=== PATIENT | male | born 1980 | race Two or more races ===

== ENCOUNTER 2024-08-24 06:58 | Emergency (ER) | payer SELFPAY ==
[~2024-08-24] VITALS: Ht 170.2 cm; Wt 72.3 kg
[2024-08-24 07:28] VITALS: BP 161/68; PULSE 109; RESP 16; O2SAT 99
--- NOTE | 2024-08-24 08:14 | ED.PDOC ---
History of Present Illness HPI Comments 44 year old male presents to the ED with chief complaint of medical clearance. Patient's brother reports that the patient has been sleepless for the past 5 days due to methamphetamine use and has been increasingly paranoid. Patient relays that he has been paranoid lately, however, he believes he just needs to stop doing drugs and refuses any and all hospital work up or treatment. Patient states he felt unsafe in his place of residence in [facility], but he is moving in with his father who lives in [place]. Patient admits to Methamphetamine, Marijuana, and heavy ETOH use. Patient notes he is willing to seek out a rehabilitation center and does not want to be seen in the ED, only co lina because his brother had made him. Patient denies any symptoms at this time. Chief Complaint: Medical Clearance Time Seen by MD: 08:10 Primary Care Provider: none Reviewed Notes: Nurses Notes, Medications, Allergies Allergies: Coded Allergies: NO KNOWN ALLERGIES (Unverified , 08/24/24) Information Source: Patient, Relative (Sibling) Mode of Arrival: Ambulatory Severity: None Prehospital treatment: None Past Medical History PAST MEDICAL HISTORY: Denies Surgical History: Denies all surgeries Family History Family History: Reviewed,noncontributory to illness Social History Smoker: Non-Smoker Alcohol: Heavy Drugs: Marijuana, Methamphetamine Lives In: Home Constitutional: denies: chills, diaphoresis, fatigue, fever, malaise, sweats, weakness, others EENTM: denies: blurred vision, double vision, ear bleeding, ear discharge, ear drainage, ear pain, ear ringing, eye pain, eye redness, hearing loss, mouth pain, mouth swelling, nasal discharge, nose bleeding, nose congestion, nose pain, photophobia, tearing, throat pain, throat swelling, voice changes, others Respiratory: denies: cough, hemoptysis, orthopnea, SOB at rest, shortness of breath, SOB with excertion, stridor, wheezing, others Cardiovascular: denies: chest pain, dizzy spells, diaphoresis, Dyspnea on exertion, edema, irregular heart beat, left arm pain, lightheadedness, palpitations, PND, syncope, others Gastrointestinal: denies: abdomen distended, abdominal pain, blood streaked bowels, constipated, diarrhea, dysphagia, difficulty swallowing, hematemesis, melena, nausea, poor appetite, poor fluid intake, rectal bleeding, rectal pain, vomiting, others Genitourinary: denies: burning, dysuria, flank pain, frequency, hematuria, incontinence, penile discharge, penile sore, pain, testicle pain, testicle swelling, urgency, others Neurological: denies: dizziness, fainting, headache, left sided numbness, left sided weakness, numbness, paresthesia, pre-existing deficit, right sided numbness, right sided weakness, seizure, speech problems, tingling, tremors, weakness, others Musculoskeletal: denies: back pain, gout, joint pain, joint swelling, muscle pain, muscle stiffness, neck pain, others Integumetry: denies: bruises, change in color, change in hair/nails, dryness, laceration, lesions, lumps, rash, wounds, others Allergic/Immunocompromised: denies: Difficulty Healing, Frequent Infections, Hives, Itching, others Hematologic/Lymphatic: denies: anemia, blood clots, easy bleeding, easy bruising, swollen glands, others Endocrine: denies: excessive hunger, excessive sweating, excessive thirst, excessive urination, flushing, intolerance to cold, intolerance to heat, unexplained weight gain, unexplained weight loss, others Psychiatric: denies: anxiety, bipolar disorder, depression, hopeless, panic disorder, schizophrenia, sleepless, suicidal, others All Other Systems: Reviewed and Negative Physical Exam General Appearance: Moderate Distress, Normal HEENT: Normal ENT Inspection, PERRL/EOMI Neck: Full Range of Motion, Non-Tender, Normal, Normal Inspection Respiratory: Chest Non-Tender, Lungs Clear, No Accessory Muscle Use, No Respiratory Distress, Normal Breath Sounds Cardiovascular: No Edema, No JVD, No Murmur, No Gallop, Normal Peripheral Pulses, Regular Rate/Rhythm Breast Exam: Deferred Gastrointestinal: No Organomegaly, Non Tender, No Pulsatile Mass, Normal Bowel Sounds, Soft Genitalia: Deferred Pelvic: Deferred Rectal: Deferred Extremities: No calf tenderness, Normal capillary refill, Normal inspection, Normal range of motion, Non-tender, No pedal edema Musculoskeletal : Apperance: Normal Neurologic: Alert, orthopedic physician II-XII nml as Tested, No Motor Deficits, Normal Affect, Normal Mood, No Sensory Deficits Cerebellar Function: Normal Reflexes: Normal Skin: Dry, Normal Color, Warm Peripheral Pulses: 3+ Radial (R), 3+ Radial (L) Lymphatic: No Adenopathy Was a procedure done? Was a procedure done?: No Differential Dx Considerations may include: Drug use Electrolyte imbalance X-Ray, Labs, Meds, VS Vital Signs Date Time Temp Pulse Resp B/P (MAP) Pulse Ox O2 Delivery O2 Flow Rate FiO2 08/24/24 07:28 98.0 109 16 161/68 (99) 99 Patient alert. History of drug use. Drinks a lot of alcohol. Vitals stable. Denies any symptoms. Saturation pristine on room air. Patient insists on leaving. Explained to the patient that he will need to be worked up. Insists on leaving Time of 1ST Reevaluation: 08:20 Reevaluation 1ST: Unchanged Patient Education/Counseling: Diagnosis, Treatment Family Education/Counseling: Diagnosis, Treatment Additional Information I reviewed the following notes from patient's past medical encounters: None The following tests were ordered, and results were reviewed by me: None Additional Information was gathered from interviewing the following independent historians: Brother I reviewed and agreed with the following test results read by other providers: None I discussed treatment and results with medical personnel and: Brother Departure 1 Departure Time of Disposition: 09:40 Impression: Primary Impression: Alcohol abuse Disposition: 07 LEFT AWOL/ELOPED Condition: Good Discharged With: Self Critical Care Note Critical Care Time?: No Stability Stability form required: No Heart Score Heart Score: Heart Score Response (Comments) Value History N/A 0 EKG N/A 0 Age N/A 0 Risk Factors N/A 0 Troponin N/A 0 Total 0 I personally scribed for MED ONEAL MD ([email or web address]) on 08/24/24 at 08:14. Electronically submitted by Amarjit Hassan ([email or web address]). MED ONEAL MD Aug 24, 2024 08:14
== END 2024-08-24 09:38 | disposition left against medical advice (07) ==
LOC: ER 06:58
DX: F10.10 Alcohol abuse, uncomplicated (principal); Z02.89 Encounter for other administrative examinations